=== PATIENT | male | born 1975 ===

== ENCOUNTER 2017-04-05 11:23 | Emergency (ER) | payer SELFPAY ==
[2017-04-05 11:29] VITALS: BP 124/78; PULSE 71; TEMP 97.9; O2SAT 97
[2017-04-05] MEDS ORDERED: Lidocaine 2% w Epi 1:100,000 Inj IJ ONE (11:37)
[2017-04-05] MEDS ORDERED: Bacitracin 500 Units/gm Oint Foilpak UD ONE (12:05)
[2017-04-05 12:18] VITALS: RESP 16
--- NOTE | 2017-04-05 14:30 | C.PDOC ---
History Of Present Illness Carroll Rosado is a 42 y/o male presenting to the ER for evaluation of left foot laceration caused by broken glass, sustained approximately 1 hour prior to arrival. The glass was described as 1 large piece, removed from the wound. Tetanus is up to date. Time Seen by Provider: 04/05/17 11:41 Chief Complaint (Nursing): Abnormal Skin Integrity History Per: Patient History/Exam Limitations: no limitations Onset/Duration Of Symptoms: Hrs (x 1) Current Symptoms Are (Timing): Still Present Past Medical History Reviewed: Historical Data, Nursing Documentation, Vital Signs Vital Signs: Last Vital Signs Temp 97.9 F 04/05/17 11:28 Pulse 71 04/05/17 11:28 Resp 16 04/05/17 12:17 BP 124/78 04/05/17 11:28 Pulse Ox 97 04/05/17 14:35 - Medical History PMH: No Chronic Diseases Surgical History: No Surg Hx Family History: States: Unknown Family Hx - Social History Hx Alcohol Use: No Hx Substance Use: No - Immunization History Hx Tetanus Toxoid Vaccination: Yes Hx Influenza Vaccination: No Hx Pneumococcal Vaccination: No Review Of Systems Except As Marked, All Systems Reviewed And Found Negative. Constitutional: Negative for: Fever, Chills Skin: Positive for: Lesions (lac to left foot) Neurological: Negative for: Weakness, Numbness Physical Exam - Physical Exam Appears: Non-toxic, No Acute Distress Skin: Normal Color, Warm, Dry Head: Atraumatic, Normacephalic Eye(s): bilateral: Normal Inspection, PERRL, EOMI Neck: Normal ROM, Supple Cardiovascular: Rhythm Regular, No Murmur Respiratory: Normal Breath Sounds, No Accessory Muscle Use Extremity: Normal ROM, Capillary Refill (less than 2 sec), No Swelling (or redness), Other (2 cm laceration to left foot at dorsal aspect) Pulses: Left Dorsalis Pedis: Normal, Right Dorsalis Pedis: Normal Neurological/Psych: Oriented x3, Normal Speech, Normal Motor, Normal Sensation ED Course And Treatment O2 Sat by Pulse Oximetry: 97 (RA) Pulse Ox Interpretation: Normal Laceration - Laceration Repair Laceration, Left Foot Wound Length (In cm): 2 cm Description Of Wound: Linear Wound Cleansed With: Betadine, Sterile Saline Anesthesia: Lidocaine 1%, With Epi Wound Examination: Irrigated With Saline, No FB With Wound Exploration Wound Closure: Suture (x 5) Suture Technique And Material Used: Interrupted, Nylon (4:0) Medical Decision Making Medical Decision Making: Plan: Laceration repaired without difficulty. *see procedure note Patient is medically stable for discharge. Advised to follow up for suture removal in 7 days. Disposition Counseled Patient/Family Regarding: Diagnosis, Need For Followup - Disposition Referrals: [facility] [Outside] [facility] [Outside] Disposition: HOME/ ROUTINE Disposition Time: 11:50 Condition: IMPROVED Additional Instructions: Thank you for letting us take care of you today. If you were prescribed any medication, please fill it and take as directed. It may take several days for your symptoms to resolve. Return to the Emergency Department if your symptoms worsen, do not improve, or if you have any other problems. Please contact your doctor or call one of the physicians/clinics you have been referred to that are listed on the Patient Visit Information form that is included in your discharge packet. Bring any paperwork you were given at discharge with you along with any medications you are taking to your follow up visit. Our treatment cannot replace ongoing medical care by a primary care provider (PCP) outside of the emergency department. Thank you for allowing the [facility] team to be part of your care today. Follow up with the clinic or the emergency room in 7 days for suture removal. Ramona por dejarnos atenderlo hoy. Si le prescribieron algn medicamento, ll patti y tome segn las indicaciones. Nita sntomas pueden tardar varios trevizo en resolverse. Regrese al Departamento de Emergencia si nita sntomas empeoran, no mejoran o si tiene algn otro problema. Comunquese con fletcher mdico o llame a sedrick de los mdicos / clnicas a los que luna sido referido que figura en el formulario de Informacin de visita del paciente que se incluye en fletcher paquete de muna. Traiga todos los documentos que recibi al momento del muna junto con los medicamentos que est tomando en fletcher visita de seguimiento. Nuestro tratamiento no puede reemplazar la atencin mdica en curso por parte de un proveedor de atencin primaria (PCP) fuera del departamento de emergencias. Ramona por permitir que el equipo de [facility] sea parte de fletcher cuidado hoy. Simona un seguimiento con la clnica o la elma de emergencias en 7 trevizo para la extraccin de la sutura. Instructions: Care For Your Stitches (ED) Forms: Gen Discharge Inst Bengali, Work Excuse Print Language: BELARUSIAN - Clinical Impression Clinical Impression: Laceration of foot - Scribe Statement The provider has reviewed the documentation as recorded by the Scribe (Jeni Contreras) Provider Attestation: All medical record entries made by the Scribe were at my direction and personally dictated by me. I have reviewed the chart and agree that the record accurately reflects my personal performance of the history, physical exam, medical decision making, and the department course for this patient. I have also personally directed, reviewed, and agree with the discharge instructions and disposition.
== END 2017-04-05 12:17 | disposition home or self-care (01) ==
LOC: C.ER 11:23
DX: S91.312A Laceration without foreign body, left foot, initial encounter (principal); W25.XXXA Contact with sharp glass, initial encounter